=== PATIENT | female | born 1950 | race Caucasian/White ===

== ENCOUNTER 2016-10-16 10:33 | Outpatient (CLI) | payer OTHER | END 2016-10-16 10:34 | disposition home or self-care (01) | DX: Z12.31 Encounter for screening mammogram for malignant neoplasm of breast (principal); Z80.3 Family history of malignant neoplasm of breast ==

== ENCOUNTER 2017-04-30 15:00 | Outpatient (CLI) | payer MEDICARE, OTHER ==
--- NOTE | 2017-04-30 16:41 | Ultrasound Report ---
LEFT LEG VENOUS DUPLEX: 04/30/2017 CLINICAL INDICATION: Left calf pain. TECHNIQUE: Real-time sonographic vascular imaging was performed by the doctor assistant through the left lower extremity utilizing both color flow and Doppler spectral analysis. Multiple product representative static images were saved for review. FINDINGS: A left lower extremity venous sonogram is performed revealing the common femoral, superficial femoral, profunda femoris, and popliteal veins to be adequately visualized without intraluminal defects. There is normal venous compression, augmentation, phasicity, and spontaneity of venous flow. In the calf, the visualized more cephalad portions of posterior tibial and peroneal veins are grossly compressible, without filling defects. Scanning of the region of pain identified by the patient in the medial calf demonstrates a thrombosed superficial varicosity. IMPRESSION: NO EVIDENCE OF DEEP VENOUS THROMBOSIS. JOB #: [id number] EXT JOB #: [id number]
== END 2017-04-30 15:01 | disposition home or self-care (01) ==
LOC: DI 15:00
PROVIDERS: ATTEND Nurse Practitioner Family
DX: M79.661 Pain in right lower leg (principal); R06.02 Shortness of breath; Z87.891 Personal history of nicotine dependence
CPT/HCPCS: 71020

== ENCOUNTER 2017-04-30 15:03 | Outpatient (CLI) | payer MEDICARE, OTHER ==
--- NOTE | 2017-05-01 11:07 | XRAY Report ---
TWO-VIEW CHEST: 04/30/2017 CLINICAL INDICATION: Shortness of breath. COMPARISON: 05/26/2012 FINDINGS: Frontal and lateral views of the chest demonstrate a normal cardiac silhouette. The lungs are clear. No effusion or pneumothorax is present. IMPRESSION: NORMAL CHEST. JOB #: [id number] EXT JOB #:[id number]
== END 2017-04-30 15:04 | disposition home or self-care (01) ==
LOC: DI 15:03
PROVIDERS: ATTEND Physician Assistant
DX: R06.02 Shortness of breath (principal); Z87.891 Personal history of nicotine dependence
CPT/HCPCS: 71020

== ENCOUNTER 2017-12-04 11:39 | Outpatient (CLI) | payer MEDICARE, OTHER ==
--- NOTE | 2017-12-05 09:12 | Mammography Report ---
Procedure Date: 12/04/2017 Accession Number: [id number] / [id number] Procedure: KATIE - Screening Mammo Dig Bilat CPT Code: FULL RESULT: EXAM: Screening Mammo Dig Bilat DATE: 12/04/2017 12:15 PM CLINICAL HISTORY: Mother with breast cancer TECHNIQUE: Bilateral CC and MLO views were obtained. COMPARISON: 10/16/2016, 03/21/2015, 03/10/2013 and 09/05/2009 FINDINGS: There is extensive fatty replacement of the breast tissue. No significant interval change. No suspicious masses, skin thickening, clustered microcalcifications, or regions of architectural distortion are identified. IMPRESSION: Negative examination RECOMMENDATION: Routine annual screening unless otherwise clinically indicated. BIRADS CATEGORY 1: Negative STANDARD QUALIFYING STATEMENTS: 1. This examination was reviewed with the aid of Computer-Aided Detection (CAD). 2. A negative or benign imaging report should not delay biopsy if clinically suspicious findings are present. Consider surgical consultation if warrented. More than 5% of cancers are not identified by imaging. 3. Dense breasts may obscure an underlying neoplasm.
== END 2017-12-04 11:40 | disposition home or self-care (01) ==
LOC: DI 11:39
PROVIDERS: ATTEND Family Medicine
DX: Z12.31 Encounter for screening mammogram for malignant neoplasm of breast (principal); Z80.3 Family history of malignant neoplasm of breast
CPT/HCPCS: 77067

== ENCOUNTER 2018-04-30 16:44 | Outpatient (CLI) | payer MEDICARE, OTHER ==
--- NOTE | 2018-04-30 18:06 | Ultrasound Report ---
Reason: VARICOSE VEINS OF OTHER SPECIFIED SITES Procedure Date: 04/30/2018 Accession Number: [id number] / [id number] Procedure: US - Duplex Ext Veins Left CPT Code: FULL RESULT: EXAM: LEFT LOWER EXTREMITY VENOUS ULTRASOUND EXAM DATE: 04/30/2018 05:43 PM. CLINICAL HISTORY: Left leg pain. Varicose veins. COMPARISON: DUPLEX EXT VEINS LEFT 04/30/2017 3:16 PM. TECHNIQUE: Real-time sonographic vascular imaging was performed by the panelboard assembler through the lower extremity utilizing both color-flow and Doppler spectral analysis. Multiple truck sales representative static images were saved for review. FINDINGS: Common Femoral Vein (CFV): Normal. CFV-GSV Junction: Normal. Profunda Femoral Vein (PFV): Normal. Femoral Vein (FV) Prox: Normal. Femoral Vein (FV) Mid: Normal. Femoral Vein (FV) Dist: Normal. Popliteal Vein: Normal. Posterior Tibial Veins: Normal. Peroneal Veins: Normal. Other: Occlusive thrombus in superficial veins in the medial left upper calf/knee area. Popliteal fluid collection 6.9 x 1.6 x 2.7 cm. IMPRESSION: 1. No evidence for deep venous thrombosis. 2. Superficial vein thrombosis in the upper calf. 3. Mendoza's cyst. RADIA The call report notification system was initiated by Dr. Aaron Cesar at 18:02 hrs on 04/30/18. The above findings were discussed with Laurita Simon by Dr. Aaron Cesar at 18:04 hrs on 04/30/18.
== END 2018-04-30 16:45 | disposition home or self-care (01) ==
LOC: DI 16:44
PROVIDERS: ATTEND Nurse Practitioner Family
DX: I83.812 Varicose veins of left lower extremity with pain (principal); I82.812 Embolism and thrombosis of superficial veins of left lower extremity; M71.22 Synovial cyst of popliteal space [Baker], left knee

== ENCOUNTER 2018-06-05 13:30 | Outpatient (CLI) | payer MEDICARE, OTHER ==
--- NOTE | 2018-06-08 11:57 | DEXA Report ---
Reason: SCREENING FOR OSTEOPOROSIS Procedure Date: 06/05/2018 Accession Number: [id number] / [id number] Procedure: DEX - Dexa Spine and/or Hip CPT Code: FULL RESULT: EXAM: Dexa Spine and/or Hip, Dexa Forearm DATE: 06/05/2018 2:04 PM CLINICAL HISTORY: SCREENING FOR OSTEOPOROSIS TECHNIQUE: Dual energy x-ray absorptiometry (DXA) was performed on a [employer] System. Regions measured are the AP Spine, femoral neck, and if needed forearm. COMPARISON: None. In accordance with the International Society for Clinical Densitometry (ISCD) guidelines, data from previous exams may be reanalyzed using current recommendations and techniques. This is done to allow a more accurate basis for comparison with the current study. FINDINGS: The data for the hip is as follows: BMD (g/cm/cm) T-SCORE Z-SCORE REGION Neck 1.094 0.4 1.2 TOTAL 1.176 1.3 1.8 NOTE: The femoral neck or total proximal femur, whichever is lowest, is used for classification. The data for the left forearm is as follows: BMD (g/cm/cm) T-SCORE Z-SCORE REGION 1/3 0.959 1.0 2.4 NOTE: The 33% radius of the nondominant forearm is used for classification. IMPRESSION: THE WHO CLASSIFICATION BASED ON THE INTERNATIONAL REFERENCE STANDARD IS NORMAL. THE FRACTURE RISK IS NOT INCREASED. RECOMMENDATION: Patients with diagnosis of osteoporosis or osteopenia should have regular bone mineral density assessment. For those eligible for Medicare, routine testing is allowed once every 2 years. Testing frequency can be increased for patients who have rapidly progressing disease or for those who are receiving medical therapy to restore bone mass. COMMENT: World Health Organization (WHO) definitions for osteoporosis and osteopenia: NORMAL BMD: T-score at -1.0 or higher, fracture risk is low OSTEOPENIA BMD: T-score between -1.0 and -2.5, fracture risk is increased. OSTEOPOROSIS BMD: T-score at -2.5 or lower, fracture risk is high. National Osteoporosis Foundation recommends: 1. Obtain adequate dietary calcium (at least 1200 mg per day) and vitamin D (400-800 international units per day). 2. Participate, as appropriate, in regular weightbearing and muscle-strengthening exercise. 3. Avoid tobacco use and reduce alcohol and caffeine intake. 4. For more detailed information see the website at www.NOF.org.
--- NOTE | 2018-06-08 11:57 | DEXA Report ---
Reason: SPINAL FUSION FROM SACRUM TO L4 Procedure Date: 06/05/2018 Accession Number: [id number] / [id number] Procedure: DEX - Dexa Forearm CPT Code: FULL RESULT: EXAM: Dexa Spine and/or Hip, Dexa Forearm DATE: 06/05/2018 2:04 PM CLINICAL HISTORY: SCREENING FOR OSTEOPOROSIS TECHNIQUE: Dual energy x-ray absorptiometry (DXA) was performed on a [employer] System. Regions measured are the AP Spine, femoral neck, and if needed forearm. COMPARISON: None. In accordance with the International Society for Clinical Densitometry (ISCD) guidelines, data from previous exams may be reanalyzed using current recommendations and techniques. This is done to allow a more accurate basis for comparison with the current study. FINDINGS: The data for the hip is as follows: BMD (g/cm/cm) T-SCORE Z-SCORE REGION Neck 1.094 0.4 1.2 TOTAL 1.176 1.3 1.8 NOTE: The femoral neck or total proximal femur, whichever is lowest, is used for classification. The data for the left forearm is as follows: BMD (g/cm/cm) T-SCORE Z-SCORE REGION 1/3 0.959 1.0 2.4 NOTE: The 33% radius of the nondominant forearm is used for classification. IMPRESSION: THE WHO CLASSIFICATION BASED ON THE INTERNATIONAL REFERENCE STANDARD IS NORMAL. THE FRACTURE RISK IS NOT INCREASED. RECOMMENDATION: Patients with diagnosis of osteoporosis or osteopenia should have regular bone mineral density assessment. For those eligible for Medicare, routine testing is allowed once every 2 years. Testing frequency can be increased for patients who have rapidly progressing disease or for those who are receiving medical therapy to restore bone mass. COMMENT: World Health Organization (WHO) definitions for osteoporosis and osteopenia: NORMAL BMD: T-score at -1.0 or higher, fracture risk is low OSTEOPENIA BMD: T-score between -1.0 and -2.5, fracture risk is increased. OSTEOPOROSIS BMD: T-score at -2.5 or lower, fracture risk is high. National Osteoporosis Foundation recommends: 1. Obtain adequate dietary calcium (at least 1200 mg per day) and vitamin D (400-800 international units per day). 2. Participate, as appropriate, in regular weightbearing and muscle-strengthening exercise. 3. Avoid tobacco use and reduce alcohol and caffeine intake. 4. For more detailed information see the website at www.NOF.org.
== END 2018-06-05 13:31 | disposition home or self-care (01) ==
LOC: DI 13:30
PROVIDERS: ATTEND Family Medicine
DX: Z13.820 Encounter for screening for osteoporosis (principal); Z78.0 Asymptomatic menopausal state
CPT/HCPCS: 77080; 77081

== ENCOUNTER 2018-06-15 11:09 | Outpatient (CLI) | payer MEDICARE, OTHER | END 2018-06-15 11:10 | disposition home or self-care (01) | LOC: SC 11:09 | PROVIDERS: ATTEND Internal Medicine Pulmonary Disease | DX: G47.10 Hypersomnia, unspecified (principal); R41.89 Other symptoms and signs involving cognitive functions and awareness; R06.83 Snoring | CPT/HCPCS: 99203; G0463; 99212 ==

== ENCOUNTER 2018-06-28 19:16 | Outpatient (CLI) | payer MEDICARE, OTHER | END 2018-06-28 19:17 | disposition home or self-care (01) | LOC: SC 19:16 | PROVIDERS: ATTEND Internal Medicine Pulmonary Disease | DX: G47.33 Obstructive sleep apnea (adult) (pediatric) (principal) | CPT/HCPCS: 95810 ==

== ENCOUNTER 2018-07-14 10:13 | Outpatient (CLI) | payer MEDICARE, OTHER | END 2018-07-14 10:14 | disposition home or self-care (01) | LOC: SC 10:13 | PROVIDERS: ATTEND Nurse Practitioner Family | DX: G47.33 Obstructive sleep apnea (adult) (pediatric) (principal) | CPT/HCPCS: 99214; G0463; 99212 ==

== ENCOUNTER 2018-12-15 12:13 | Emergency (ER) | payer MEDICARE, OTHER ==
--- NOTE | 2018-12-15 13:01 | XRAY Report ---
Reason: R knee pain Procedure Date: 12/15/2018 Accession Number: [id number] / [id number] Procedure: XR - Knee 4 View RT CPT Code: FULL RESULT: EXAM: RIGHT KNEE RADIOGRAPHY EXAM DATE: 12/15/2018 12:41 PM. CLINICAL HISTORY: R knee pain. COMPARISON: KNEE 3 VIEW BILAT 02/21/2016 11:20 AM. TECHNIQUE: 4 views. FINDINGS: Bones: Normal. No fractures or bone lesions. Joints: Medial joint space osteophyte, joint space narrowing, subchondral sclerosis. Spurring of the tibial spines. Lateral joint space osteophyte. Patellofemoral osteophyte and joint space narrowing with small effusion. Soft Tissues: Normal. No soft tissue swelling. IMPRESSION: Severe tricompartmental degenerative changes RADIA
--- NOTE | 2018-12-15 14:15 | Ultrasound Report ---
Reason: RLE swelling Procedure Date: 12/15/2018 Accession Number: [id number] / [id number] Procedure: US - Duplex Ext Veins Right CPT Code: FULL RESULT: EXAM: RIGHT LOWER EXTREMITY VENOUS ULTRASOUND EXAM DATE: 12/15/2018 01:41 PM. CLINICAL HISTORY: RLE swelling. COMPARISON: None. TECHNIQUE: Real-time sonographic vascular imaging was performed by the marketing admin through the lower extremity utilizing both color-flow and Doppler spectral analysis. Multiple sales representative facility services static images were saved for review. FINDINGS: Common Femoral Vein (CFV): Normal. CFV-GSV Junction: Normal. Profunda Femoral Vein (PFV): Normal. Femoral Vein (FV) Prox: Normal. Femoral Vein (FV) Mid: Normal. Femoral Vein (FV) Dist: Normal. Popliteal Vein: Normal. Peroneal Veins: Normal. Other: None. IMPRESSION: 1. No evidence of right lower extremity deep venous thrombosis. RADIA
[2018-12-15] MEDS ORDERED: CHERRY SYRUP 10 ML UDC PO ONE (14:26)
[2018-12-15] MEDS ORDERED: DEXAMETHASONE 10 MG/ML VIAL PO STA (14:26)
--- NOTE | 2018-12-15 14:30 | ED Physician Documentation ---
PD HPI LOWER EXT INJURY - Stated complaint Stated Complaint: RIGHT KNEE SWELLING - Chief complaint Chief Complaint: Ext Problem - History obtained from History obtained from: Patient - History of Present Illness PD HPI LOW EXT INJURY LOCATION: Right, Knee Type of injury: Other (back to biking last week) Where injury occurred: Home Timing - onset: How many days ago (3) Timing - duration: Days (3) Timing - details: Gradual onset, Still present Improved by: Rest, Immobilization Worsened by: Moving, Palpating Associated symptoms: Swelling. No: Weakness, Numbness Contributing factors: No: Anticoagulated Similar symptoms before: Diagnosis (arthritis of the knee) Recently seen: Not recently seen - Additional information Additional information: 67-year-old female with a history of degenerative arthritis has severe degenerative arthritis in the right knee and over the past 3 days she has had swelling and pain in that knee. She has had a prior history of DVT with similar swelling and she is concerned about the possibility of DVT again. She usually gets a cortisone shot in her knee every 4 months and she is due. Review of Systems Constitutional: denies: Fever Eyes: denies: Decreased vision Ears: denies: Ear pain Nose: denies: Congestion Throat: denies: Sore throat Cardiac: denies: Chest pain / pressure, Palpitations Respiratory: denies: Dyspnea GI: denies: Vomiting PD PAST MEDICAL HISTORY - Past Medical History Past Medical History: Yes - Allergies Allergies/Adverse Reactions: Allergies Allergy/AdvReac Type Severity Reaction Status Date / Time Sulfa (Sulfonamide Allergy Itching Verified 12/15/18 12:20 Antibiotics) - Social History Does the pt smoke?: No Smoking Status: Never smoker PD ED PE NORMAL - Vitals Vital signs reviewed: Yes (hypertensive ) - General General: Alert and oriented X 3, No acute distress, Well developed/nourished - HEENT HEENT: Atraumatic, PERRL - Neck Neck: Supple, no meningeal sign - Respiratory Respiratory: No respiratory distress - Derm Derm: Normal color, Warm and dry, No rash - Extremities Extremities: No deformity, Other (There is a small joint effusion to the right knee and this is not warm or red. There is fair ROM to the knee and the ligaments are stable to testing. Distal n/v intact) - Psych Psych: Normal mood, Normal affect Results - Vitals Vitals: Vital Signs - 24 hr 12/15/18 12:16 Temperature 36.4 C L Heart Rate 78 Respiratory 14 Rate Blood Pressure 167/85 H O2 Saturation 98 Oxygen O2 Source Room air PD MEDICAL DECISION MAKING - ED course Complexity details: reviewed results, re-evaluated patient, considered differential, d/w patient, d/w family ED course: 67 y/o female with sever DJD to the knee has started back on the bicycle and she has now developed worsening pain in the knee. She is administered PO decadron and will follow up with her orthopod. Departure - Departure Disposition: 01 Home, Self Care Clinical Impression: Reactive arthritis of knee Condition: Stable Instructions: ED Effusion Knee Follow-Up: Enoch Barreto MD [Primary Care Provider] - Your, orthopod [Other]
[2018-12-15 14:38] VITALS: BP 150/110
== END 2018-12-15 14:39 | disposition home or self-care (01) ==
LOC: ED 12:13
DX: M02.361 Reiter's disease, right knee (principal)
CPT/HCPCS: 73564; 93971; 99282; 99283; A9270

== ENCOUNTER 2018-12-29 19:45 | Outpatient (CLI) | payer MEDICARE, OTHER ==
--- NOTE | 2018-12-29 20:56 | Ultrasound Report ---
Reason: PAIN IN RIGHT LOWER LEG Procedure Date: 12/29/2018 Accession Number: [id number] / [id number] Procedure: US - Duplex Ext Veins Right CPT Code: FULL RESULT: EXAM: RIGHT LOWER EXTREMITY VENOUS ULTRASOUND EXAM DATE: 12/29/2018 08:33 PM. CLINICAL HISTORY: PAIN IN RIGHT LOWER LEG. COMPARISON: DUPLEX EXT VEINS RIGHT 12/15/2018 1:07 PM. TECHNIQUE: Real-time sonographic vascular imaging was performed by the ela teacher through the lower extremity utilizing both color-flow and Doppler spectral analysis. Multiple inside outside sales representative static images were saved for review. FINDINGS: Common Femoral Vein (CFV): Normal. CFV-GSV Junction: Normal. Profunda Femoral Vein (PFV): Normal. Femoral Vein (FV) Prox: Normal. Femoral Vein (FV) Mid: Normal. Femoral Vein (FV) Dist: Normal. Popliteal Vein: Normal. Posterior Tibial Veins: Not well seen. Peroneal Veins: Not well seen. Contralateral Side CFV: Normal. Other: Complex fluid collection, anterior lower leg, 5.0 x 1.3 x 2.4 cm. IMPRESSION: 1. No evidence for deep venous thrombosis. 2. Complex 5.0 x 1.3 x 2.4 cm fluid collection compatible with hematoma, anterior lower leg. RADIA The call report notification system was initiated by Dr. Aaron Cesar at 08:55 PM on 12/29/2018. ADDENDUM: 12/29/18 21:01 The above call report findings were discussed with Dr. Collado by Dr. Aaron Cesar at 09:01 PM on 12/29/2018.
== END 2018-12-29 19:46 | disposition home or self-care (01) ==
LOC: DI 19:45
PROVIDERS: ATTEND Nurse Practitioner Family
DX: M79.661 Pain in right lower leg (principal)

== ENCOUNTER 2021-07-09 20:18 | Outpatient (CLI) | payer MEDICARE, OTHER ==
--- NOTE | 2021-07-10 10:17 | Ultrasound Report ---
PROCEDURE: Retroperitoneal INDICATIONS: STAGE 3B CHRONIC KIDNEY DISEASE TECHNIQUE: Real-time scanning was performed of the retroperitoneal organs, with image documentation. COMPARISON: None. FINDINGS: Kidneys: Kidneys are normal in size. Right kidney measures 9.5 cm long; left kidney measures 9.3 cm long. Right renal cortical thickness is 1.2 cm; left renal cortical thickness is 0.9 cm. Renal cor nichelle is echogenic bilaterally. No solid masses, hydronephrosis, or nephrolithiasis. Bladder: Pre-void bladder volume is 217 mL. Post-void residual is 11 mL. Pre-void images demonstra te no intraluminal masses or stones. On pre-void images, both the right and left ureteral jets are n oted with color Doppler interrogation. (Of note, ureteral jets may not be detectable in up to 25% of cases due to insufficient differences in specific gravity between ureteral and bladder urine). Miscellaneous: No free pelvic fluid. IMPRESSION: 1. Bilateral renal cortical echogenicity compatible with known medical renal disease. 2. Mild left renal cortical thinning. 3. No hydronephrosis. Reviewed by: Eden Salinas MD, PhD on 07/10/2021 10:16 AM PST Approved by: Eden Salinas MD, PhD on 07/10/2021 10:16 AM PST Station ID: [id number]
== END 2021-07-09 20:19 | disposition home or self-care (01) ==
LOC: DI 20:18
PROVIDERS: ATTEND Internal Medicine Nephrology
DX: N18.32 Chronic kidney disease, stage 3b (principal); N26.1 Atrophy of kidney (terminal)

== ENCOUNTER 2021-07-10 10:53 | Outpatient (CLI) | payer MEDICARE, OTHER ==
[2021-07-10 14:25] LABS: BASOPHILS % (AUTO) 0.8 %; EOSINOPHILS # (AUTO) 0.1 10^3/uL (0.0-0.7); EOSINOPHILS % (AUTO) 1.4 %; HCT - HEMATOCRIT 35.6 % (37.0-47.0); HGB - HEMOGLOBIN 11.7 g/dL (12.0-16.0); LYMPHOCYTES # (AUTO) 1.5 10^3/uL (1.5-3.5); LYMPHOCYTES % (AUTO) 28.5 %; MEAN CORPUSCULAR HEMOGLOBIN 30.3 pg (27.0-31.0); MEAN CORPUSCULAR HGB CONC 32.9 g/dL (32.0-36.0); MEAN CORPUSCULAR VOLUME 92.2 fL (81.0-99.0); MEAN PLATELET VOLUME 11.6 fL (7.9-10.8); MONOCYTES # (AUTO) 0.5 10^3/uL (0.0-1.0); MONOCYTES % (AUTO) 10.5 %; NEUTROPHILS % (AUTO) 58.6 %; PLT - PLATELET COUNT 246 10^3/uL (130-450); RED BLOOD COUNT 3.86 10^6/uL (4.20-5.40); RED CELL DISTRIBUTION WIDTH 13.3 % (12.0-15.0); WHITE BLOOD COUNT 5.1 x10^3/uL (4.8-10.8)
[2021-07-10 14:47] LABS: BILIRUBIN,URINE NEGATIVE (NEGATIVE); GLUCOSE, URINE (UA) NEGATIVE (NEGATIVE); KETONES,URINE (UA) NEGATIVE (NEGATIVE); LEUKOCYTE ESTERASE, URINE NEGATIVE (NEGATIVE); NITRITE,URINE NEGATIVE (NEGATIVE); OCCULT BLOOD,URINE NEGATIVE (NEGATIVE); PH,URINE 5.5 PH (5.0-7.5); PROTEIN,URINE NEGATIVE (NEGATIVE); UROBILINOGEN,URINE 0.2 (NORMAL) E.U./dL (NORMAL)
[2021-07-10 14:59] LABS: CREATININE,URINE 144.3 mg/dL; MICROALBUM/CREATININE RATIO,UR 2.1 ug/mg (<30.0); MICROALBUMIN,URINE 0.3 mg/dL (0-300.0); PROTEIN/CREATININE RATIO,URINE 0.1 (<=0.2)
[2021-07-10 15:19] LABS: BACTERIA,URINE Few /HPF (None Seen); CLARITY,URINE CLEAR (CLEAR); RBC,URINE None Seen /HPF (0-5); SQUAMOUS EPITHELIAL CELL,UR MOD Squamous (<= Few); WBC,URINE 0-3 /HPF (0-5)
[2021-07-10 16:19] LABS: FERRITIN 22.5 ng/mL (11.0-306.8)
[2021-07-10 16:26] LABS: ALBUMIN 3.8 g/dL (3.2-5.5); ALBUMIN/GLOBULIN RATIO 1.2 (1.0-2.2); BILIRUBIN,TOTAL 0.5 mg/dL (0.2-1.0); CALCIUM 9.3 mg/dL (8.5-10.3); CREATININE 1.2 mg/dL (0.4-1.0); MAGNESIUM 2.3 mg/dL (1.7-2.8); PHOSPHORUS 3.9 mg/dL (2.5-4.6); POTASSIUM 3.9 mmol/L (3.5-5.0); TOTAL PROTEIN 7.1 g/dL (6.7-8.2); URIC ACID 4.5 mg/dL (2.6-7.2)
[2021-07-11 11:53] LABS: HEPATITIS C ANTIBODY NON-REACTIVE (NON-REACTIVE)
[2021-07-12 23:06] LABS: ALBUMIN 3.7 g/dL (3.8-4.8); ALPHA 1 GLOBULIN 0.3 g/dL (0.2-0.3); ALPHA 2 GLOBULIN 0.8 g/dL (0.5-0.9); BETA 1 GLOBULIN 0.5 g/dL (0.4-0.6); BETA 2 GLOBULIN 0.3 g/dL (0.2-0.5)
== END 2021-07-10 10:54 | disposition home or self-care (01) ==
LOC: LAB.S 10:53
PROVIDERS: ATTEND Internal Medicine Nephrology
DX: N18.32 Chronic kidney disease, stage 3b (principal)
CPT/HCPCS: 36415; 80053; 81001; 81599; 82043; 82306; 82570; 82610; 82728; 83540; 83735; 83970; 84100; 84155; 84156; 84165; 84466; 84550; 85025; 86335; 86803

== ENCOUNTER 2022-01-10 09:41 | Outpatient (CLI) | payer MEDICARE, OTHER ==
[2022-01-10 15:13] LABS: ALBUMIN 3.5 g/dL (3.2-5.5); CALCIUM 9.4 mg/dL (8.5-10.3); CREATININE 1.4 mg/dL (0.4-1.0); PHOSPHORUS 4.3 mg/dL (2.5-4.6); POTASSIUM 4.5 mmol/L (3.5-5.0)
== END 2022-01-10 09:42 | disposition home or self-care (01) ==
LOC: LAB.S 09:41
PROVIDERS: ATTEND Internal Medicine Nephrology
DX: N18.31 Chronic kidney disease, stage 3a (principal)
CPT/HCPCS: 36415; 80069; 84156

== ENCOUNTER 2022-03-07 09:38 | Outpatient (CLI) | payer MEDICARE, OTHER ==
--- NOTE | 2022-03-08 09:02 | Mammography Report ---
BILATERAL DIGITAL SCREENING MAMMOGRAM 3D/2D: 03/07/2022 CLINICAL: Routine screening. Family history of breast cancer. Comparison is made to exams dated: 12/04/2017 mammogram, 10/16/2016 mammogram, 03/21/2015 mammogram, and 03/10/2013 mammogram - [facility]. Both breasts are almost entirely fatty (category a/<25% glandular tissue). No significant masses, calcifications, or other findings are seen in either breast. There has been no significant interval change. IMPRESSION: NEGATIVE There is no mammographic evidence of malignancy. A 1 year screening mammogram is recommended. Based on the Tyrer Cuzick model (a risk assessment model) the patients lifetime risk is 7.4% and her 10 year risk is 4.7%. According to the ACR, ACS, and NCCN guidelines, an annual breast MRI exam hieu g with mammogram is recommended if the patients lifetime risk is 20% or greater. This exam was interpreted at Station ID: [id number]. NOTE: For mammograms, a report in lay terms will be sent to the patient. Approximately 15% of breast malignancies will not be visualized mammographically. In the management of a palpable breast mass, a negative mammogram must not discourage biopsy of a clinically suspicious lesion. Electronically Signed By: Vikash leong/cindy:03/07/2022 13:04:52 ACR BI-RADS Category 1: Negative 3341F PARENCHYMAL PATTERN: (F) - The breast(s) demonstrate(s) diffuse fatty replacement. BI-RADS CATEGORY: (1) - 1 RECOMMENDATION: (ANNUAL) - Recommend routine annual screening mammography. [id number] 1 year screening LATERALITY: (B)
== END 2022-03-07 09:39 | disposition home or self-care (01) ==
LOC: DI.S 09:38
PROVIDERS: ATTEND Family Medicine
DX: Z12.31 Encounter for screening mammogram for malignant neoplasm of breast (principal); Z80.3 Family history of malignant neoplasm of breast

== ENCOUNTER 2022-06-11 08:25 | Outpatient (CLI) | payer MEDICARE, OTHER ==
[2022-06-11 14:57] LABS: CREATININE,URINE 146.8 mg/dL; PROTEIN/CREATININE RATIO,URINE 0.1 (<=0.2)
[2022-06-11 15:19] LABS: ALBUMIN 3.7 g/dL (3.2-5.5); CALCIUM 9.4 mg/dL (8.5-10.3); CREATININE 1.4 mg/dL (0.4-1.0); PHOSPHORUS 4.4 mg/dL (2.5-4.6); POTASSIUM 4.3 mmol/L (3.5-5.0)
== END 2022-06-11 08:26 | disposition home or self-care (01) ==
LOC: LAB.S 08:25
PROVIDERS: ATTEND Internal Medicine Nephrology
DX: N18.31 Chronic kidney disease, stage 3a (principal)
CPT/HCPCS: 36415; 80069; 82570; 84156

== ENCOUNTER 2022-11-27 00:08 | Emergency (ER) | payer MEDICARE, OTHER ==
[2022-11-27 00:25] VITALS: BP 144/75
== END 2022-11-27 01:43 | disposition left against medical advice (07) ==
LOC: ED 00:08
DX: Z53.21 Procedure and treatment not carried out due to patient leaving prior to being seen by health care provider (principal)

== ENCOUNTER 2022-12-13 07:58 | Outpatient (CLI) | payer MEDICARE, OTHER ==
[2022-12-13 15:18] LABS: CREATININE,URINE 105.1 mg/dL; PROTEIN/CREATININE RATIO,URINE 0.1 (<=0.2)
[2022-12-13 15:34] LABS: ALBUMIN 3.4 g/dL (3.2-5.5); CALCIUM 9.1 mg/dL (8.5-10.3); CREATININE 1.3 mg/dL (0.4-1.0); PHOSPHORUS 3.5 mg/dL (2.5-4.6); POTASSIUM 3.9 mmol/L (3.5-5.0)
== END 2022-12-13 07:59 | disposition home or self-care (01) ==
LOC: LAB.S 07:58
PROVIDERS: ATTEND Internal Medicine Nephrology
DX: N18.32 Chronic kidney disease, stage 3b (principal)
CPT/HCPCS: 36415; 80069; 82570; 84156

== ENCOUNTER 2022-12-27 11:29 | Outpatient (CLI) | payer MEDICARE, OTHER ==
[2022-12-27 14:59] LABS: ALBUMIN 3.8 g/dL (3.2-5.5); ALBUMIN/GLOBULIN RATIO 1.1 (1.0-2.2); BILIRUBIN,TOTAL 0.7 mg/dL (0.2-1.0); CALCIUM 9.8 mg/dL (8.5-10.3); CREATININE 1.3 mg/dL (0.4-1.0); POTASSIUM 4.3 mmol/L (3.5-5.0); TOTAL PROTEIN 7.4 g/dL (6.7-8.2)
== END 2022-12-27 11:30 | disposition home or self-care (01) ==
LOC: LAB.S 11:29
PROVIDERS: ATTEND Nurse Practitioner Psychiatric/Mental Health
DX: F33.9 Major depressive disorder, recurrent, unspecified (principal); Z79.899 Other long term (current) drug therapy
CPT/HCPCS: 36415; 80053

== ENCOUNTER 2023-01-22 08:00 | Outpatient (CLI) | payer MEDICARE, OTHER | END 2023-01-22 23:59 | disposition home or self-care (01) | LOC: LAB.S 08:00 | PROVIDERS: ATTEND Emergency Medicine | DX: R07.0 Pain in throat (principal) | CPT/HCPCS: 87070 ==

== ENCOUNTER 2023-06-04 12:37 | Outpatient (CLI) | payer MEDICARE, OTHER | END 2023-06-04 12:38 | disposition EMS.NT | LOC: EMS 12:37 | DX: Z03.89 Encounter for observation for other suspected diseases and conditions ruled out (principal) ==

== ENCOUNTER 2023-07-04 08:17 | Outpatient (CLI) | payer MEDICARE, OTHER ==
[2023-07-04 16:28] LABS: CREATININE,URINE 373.4 mg/dL; PROTEIN/CREATININE RATIO,URINE 0.1 (<=0.2)
== END 2023-07-04 08:18 | disposition home or self-care (01) ==
LOC: LAB.S 08:17
PROVIDERS: ATTEND Internal Medicine Nephrology
DX: N18.32 Chronic kidney disease, stage 3b (principal)
CPT/HCPCS: 82570; 84156

== ENCOUNTER 2024-02-11 09:56 | Outpatient (CLI) | payer MEDICARE, OTHER ==
--- NOTE | 2024-02-12 08:28 | Mammography Report ---
BILATERAL DIGITAL SCREENING MAMMOGRAM 3D/2D: 02/11/2024 CLINICAL: Routine screening. Comparison is made to exams dated: 03/07/2022 mammogram, 12/04/2017 mammogram, and 10/16/2016 mammogram - [facility]. Both breasts are almost entirely fatty (category a/<25% glandular tissue). No significant masses, calcifications, or other findings are seen in either breast. There has been no significant interval change. IMPRESSION: NEGATIVE There is no mammographic evidence of malignancy. A 1 year screening mammogram is recommended. Based on the Tyrer Cuzick model (a risk assessment model) the patient's lifetime risk is 6.6% and her 10 year risk is 4.9%. According to the ACR, ACS, and NCCN guidelines, an annual breast MRI exam hieu g with mammogram is recommended if the patient's lifetime risk is 20% or greater. This exam was interpreted at Station ID: [id number]. NOTE: For mammograms, a report in lay terms will be sent to the patient. Approximately 15% of breast malignancies will not be visualized mammographically. In the management of a palpable breast mass, a negative mammogram must not discourage biopsy of a clinically suspicious lesion. Electronically Signed By: Dawson leggett/cindy:02/11/2024 16:11:47 letter sent: No_Letter ACR BI-RADS Category 1: Negative 3341F PARENCHYMAL PATTERN: (F) - The breast(s) demonstrate(s) diffuse fatty replacement. BI-RADS CATEGORY: (1) - 1 RECOMMENDATION: (ANNUAL) - Recommend routine annual screening mammography. [id number] 1 year screening LATERALITY: (B)
== END 2024-02-11 09:57 | disposition home or self-care (01) ==
LOC: DI 09:56
PROVIDERS: ATTEND Nurse Practitioner
DX: Z12.31 Encounter for screening mammogram for malignant neoplasm of breast (principal)

== ENCOUNTER 2024-02-11 09:57 | Outpatient (CLI) | payer MEDICARE, OTHER ==
--- NOTE | 2024-02-13 11:47 | DEXA Report ---
PROCEDURE: Dexa Spine and/or Hip INDICATIONS: POSTMENOPAUSAL TECHNIQUE: Dual energy x-ray absorptiometry (DEXA) was performed in the regions detailed below. COMPARISON: 06/05/2018 FINDINGS: Lumbar Spine: Bone Mineral Density 1.616 g/cm/cm,T score 3.6. Normal Left Femoral Neck: Bone Mineral Density 0.975 g/cm/cm, T score -0.5. Normal Left Total Hip: Bone Mineral Density 1.044 g/cm/cm,T score 0.3. Normal (T score greater or equal to -1.0: NORMAL) (T score from -1.1 to -2.4: OSTEOPENIA) (T score less than or equal to -2.5 to: OSTEOPOROSIS) IMPRESSION: Normal bone mineralization Patients with diagnosis of osteoporosis or osteopenia should have regular bone mineral density assess ment. For those eligible for Medicare, routine testing is allowed once every 2 years. Testing frequ ency can be increased for patients who have rapidly progressing disease or for those who are receivin g medical therapy to restore bone mass. Reviewed by: Roman Quintero MD on 02/13/2024 10:45 AM ONELIA Approved by: Roman Quintero MD on 02/13/2024 10:45 AM ONELIA Station ID: [id number]
== END 2024-02-11 09:58 | disposition home or self-care (01) ==
LOC: DI 09:57
PROVIDERS: ATTEND Nurse Practitioner
DX: Z78.0 Asymptomatic menopausal state (principal)